=== PATIENT | female | born 1955 | race Caucasian/White ===

== ENCOUNTER → 2022-04-29 12:52 | Outpatient (CLI) | payer BC, SELFPAY ==
--- NOTE | ~2022-04-29 | MM_ITS ---
EXAMINATION: MM screening [facility]ian BI w magdalena HISTORY: Screening TECHNIQUE: Craniocaudal and mediolateral oblique 3-D tomosynthesis images were obtained and synthetic 2-D images were generated. CAD analysis was submitted and interpreted. COMPARISON: Comparison to multiple prior studies sequentially, with oldest reviewed study dated 09/2013. BREAST PARENCHYMAL COMPOSITION: There are scattered areas of fibroglandular density. FINDINGS: Stable asymmetric nodular densities. There is no evidence of suspicious mass, calcification , or architectural distortion to suggest malignancy in either breast. There has been no suspicious in terval change. IMPRESSION: 1. No mammographic evidence of malignancy. 2. Recommend routine screening mammography in one year. BI-RADS Category 1: Negative Reviewed, dictated and finalized at location A. LEX OPERATOR
== END ==
PROVIDERS: PCP Family Medicine; Visit Provider Family Medicine
DX: Z12.31 Encounter for screening mammogram for malignant neoplasm of breast (principal)
CPT/HCPCS: 77063; 77067

== ENCOUNTER 2022-08-04 10:13 | Emergency (ER) | payer MEDICARE, SELFPAY ==
--- NOTE | ~2022-08-04 | CT_ITS ---
EXAMINATION: CT brain wo con DATE: 08/04/2022 12:26 INDICATION: Headache. TECHNIQUE: Computed tomography (CT) of the head was performed without intravenous contrast. The dose- length product was 605.33 mGy-cm. Automated exposure control and iterative reconstruction technique w ere employed. COMPARISON: None FINDINGS: There are scattered mild periventricular and subcortical white matter changes, most likely related to small vessel ischemic disease (microangiopathy). There is intracranial atherosclerosis. No ventriculomegaly or midline shift. Basilar cisterns are patent. Paranasal sinuses and mastoids are p neumatized. No depressed skull fractures. No acute intracranial hemorrhage, infarction, mass or mass effect. IMPRESSION: 1. No acute intracranial abnormality. 2: Chronic age-related findings. Reviewed, dictated and finalized at location L. ON WASHER
[2022-08-04 10:17] VITALS: BP 131/70; PULSE 95; RESP 16; TEMP 37.2; O2SAT 97
--- NOTE | 2022-08-04 11:29 | ED.GENADULT ---
HPI - General Adult General Chief complaint: Upper Respiratory Infection Stated complaint: fever, headache Time Seen by Provider: 08/04/22 11:13 History of Present Illness HPI narrative: This is a 66-year-old female with no pertinent PMH who presents with a chief complaint of intermittent headache since yesterday. Additional complaints of fever, chills, cough, sore throat. She states that this headache is intermittent but severe at an 8 out of 10 when it comes on. Located in the occipital region and radiates forward. This is different than her headache patterns in the past so she is concerned. Denies any neurologic symptoms. Denies vision changes. Denies any head trauma or LOC. She is not on blood thinners. Took Tylenol at home with no relief. She has never had a CT scan of her head. Denies any known sick contacts. Denies, abdominal pain, chest pain, shortness of breath, nausea, vomiting. Denies ever having COVID-vaccine. She is a smoker. There is no neck pain or stiffness. Related Data Home Medications Medication Instructions Recorded Confirmed No Home Medications 08/04/22 08/04/22 Allergies Allergy/AdvReac Type Severity Reaction Status Date / Time Penicillins AdvReac Unknown Unknown Verified 08/04/22 11:28 Contrast Media Allergy Intermediate HIVES Uncoded 08/04/22 11:28 Review of Systems Review of Systems: CONSTITUTIONAL: Denies fever, chills, or sweats. EYES: Denies visual changes, redness, or discharge. ENT: Endorses sore throat. Denies rhinorrhea, congestion, otalgia. CARDIOVASCULAR: Denies chest pain, palpitations, or edema. RESPIRATORY: Endorses cough or dyspnea. GASTROINTESTINAL: Denies abdominal pain, nausea, vomiting, or diarrhea. GENITOURINARY: Denies dysuria or hematuria. SKIN: Denies rash or itching. MUSCULOSKELETAL: Denies back pain, joint pain, or myalgia. NEUROLOGIC: Endorses headache. denies numbness, dizziness, or weakness. PSYCHIATRIC: Denies anxiety or depression. [facility] Family History Family History (Updated 01/10/16 @ 23:19 by DOCTOR UNKNOWN) Sibling Family history of malignant neoplasm of breast in first degree relative Patient's sister is Social History Social History Smoking status: Former smoker Smoking end date: 06/14/13 Alcohol intake: current Exam Narrative: GENERAL: Well-appearing, well-nourished, and in no acute distress. HEAD: Normocephalic, atraumatic. EYES: PERRLA and EOMI. ENT: Nares clear, no rhinorrhea or epistaxis. Mucous membranes moist. Posterior oropharynx shows erythema. Oropharynx without tonsillar hypertrophy exudate or other lesions. Uvula midline. No trismus or drooling. NECK: Supple. No adenopathy or masses. CHEST: No respiratory distress. Clear to auscultation. No wheezes rales or rhonchi HEART: Regular rate and rhythm. No murmur heard. Normal peripheral pulses. ABDOMEN: Soft, nontender, nondistended, normal active bowel sounds. EXTREMITIES: Normal range of motion. No edema. SKIN: Warm, dry, no rash. NEURO: Alert and oriented x3. No focal deficits. PSYCH: Normal mood and affect. Course Vital Signs Vital signs: Vital Signs Temperature 99 F 08/04/22 10:17 Pulse Rate 95 08/04/22 10:17 Respiratory Rate 16 08/04/22 10:17 Blood Pressure 131/70 08/04/22 10:17 Pulse Oximetry 97 08/04/22 10:17 Temperature 99 F 08/04/22 10:17 Pulse Rate 95 08/04/22 10:17 Respiratory Rate 16 08/04/22 10:17 Blood Pressure 131/70 08/04/22 10:17 Pulse Oximetry 97 08/04/22 10:[address] [facility] Narrative Medical decision making narrative: This is a 66-year-old female presents with chief complaint of headache and viral URI symptoms. She reports headache is different than the ones she has had in the past. Neuro exam benign. Physical exam shows some erythema of the oropharynx. She has never had a CT scan so felt it was reasonable to get a CT scan of the brain. This shows no ac
[2022-08-04] MEDS: METOCLOPRAMIDE HCL 5 MG TABLET PO (12:48)
[2022-08-04] MEDS: IBUPROFEN 400 MG TABLET 800 MG PO (12:48)
[2022-08-04 13:14] LABS: Influenza A QL RT-PCR Negative (Negative); Influenza B QL RT-PCR Negative (Negative); RSV RNA, RT-PCR Negative (Negative); SARS-CoV-2 RNA PCR Positive
[2022-08-04 13:33] LABS: Basophils Percent Auto 0.4 % (0.2-1.2); Hematocrit 43.6 % (37.0-47.0); Hemoglobin 14.6 g/dL (12.0-15.0); Lymphocytes Percent Auto 31.3 % (18.3-44.2); Mean Corpuscular HGB Conc 33.5 g/dl (32-36); Mean Corpuscular Hemoglobin 32.5 pg (26-34); Mean Corpuscular Volume 97.1 fl (80-100); Monocytes Absolute Auto 0.6 K/mm3 (0.1-0.6); Monocytes Percent Auto 21.9 % (2.6-8.5); Neutrophils Absolute Auto 1.2 K/mm3 (1.3-6.7); Neutrophils Percent Auto 46.4 % (45.5-73.1); Platelet Count Result 123 k/mm3 (150-375); Red Blood Count 4.49 M/mm3 (4.2-5.4); Red Cell Distribution Width 13.2 % (11.5-14.5); White Blood Count 2.6 K/mm3 (4.5-10.0)
[2022-08-04 13:44] LABS: Potassium 3.3 mmol/L (3.4-5.0)
[2022-08-04 13:51] LABS: Alanine Aminotransferase 25 U/L (6-35); Albumin Level 4.4 g/dL (3.5-5.1); Alkaline Phosphatase 90 U/L (38-126); Anion Gap 8 mmol/L (8-16); Aspartate Amino Transferase 38 U/L (14-36); Bilirubin,Total 0.4 mg/dL (0.2-1.3); Blood Urea Nitrogen 19 mg/dL (7-17); Calcium 8.7 mg/dL (8.4-10.2); Carbon Dioxide 24 mmol/L (22-30); Chloride 102 mmol/L (98-107); Estimated CRCL calculation 55 ml/min; Estimated Glomerular Filt Rate > 60; Glucose 117 mg/dL (65-110); Sodium 134 mmol/L (137-145)
[2022-08-04 14:07] VITALS: BP 106/54; PULSE 64; RESP 18; TEMP 36.8; O2SAT 95
== END 2022-08-04 14:07 | disposition home or self-care (01) ==
PROVIDERS: Emergency Provider Physician Assistant; PCP Family Medicine
DX: U07.1 COVID-19 (principal); Z28.310 Unvaccinated for COVID-19; Z87.891 Personal history of nicotine dependence
CPT/HCPCS: 36415; 70450; 80053; 85025; 87637; 99284; A9270

== ENCOUNTER 2023-04-29 12:25 | Outpatient (CLI) | payer MEDICARE, SELFPAY ==
--- NOTE | ~2023-04-29 | MM_ITS ---
EXAMINATION: MM screening christian BI w magdalena HISTORY: Screening mammogram, family history of breast cancer in her sister. TECHNIQUE: Craniocaudal and mediolateral oblique 3-D tomosynthesis images were obtained and synthetic 2-D images were generated. CAD analysis was submitted and interpreted. COMPARISON: 04/29/2022, 05/11/2018, 04/29/2018 BREAST PARENCHYMAL COMPOSITION: There are scattered areas of fibroglandular density. FINDINGS: RIGHT BREAST: No suspicious mass, calcification, or architectural distortion are identified to sugges t malignancy. There has been no suspicious interval change. LEFT BREAST: There is a mass in the anterior/middle third of the inner breast approximately 5 cm from the nipple. IMPRESSION: 1. Left breast mass. 2. Additional mammographic views and possible breast ultrasound are recommended. BI-RADS Category 0: Incomplete: Needs additional imaging evaluation. Reviewed, dictated and finalized at location A. O AERIAL INSTALLER IMPRESSION: 1. Left breast mass. 2. Additional mammographic views and possible breast ultrasound are recommended . BI-RADS Category 0: Incomplete: Needs additional imaging evaluation.
== END 2023-04-29 12:26 | disposition home or self-care (01) ==
LOC: CHSIMG 12:29
PROVIDERS: PCP Family Medicine; Visit Provider Family Medicine
DX: Z12.31 Encounter for screening mammogram for malignant neoplasm of breast (principal); R92.8 Other abnormal and inconclusive findings on diagnostic imaging of breast
CPT/HCPCS: 77063; 77067

== ENCOUNTER → 2023-05-18 09:05 | Outpatient (CLI) | payer MEDICARE, SELFPAY ==
--- NOTE | ~2023-05-18 | MMUS_ITS ---
EXAMINATION: MM diagnostic christian LT w magdalena, US breast LT limited HISTORY: Left breast mass on screening mammogram TECHNIQUE: Additional 3-D tomosynthesis images of the left breast were performed and synthetic 2-D im ages were generated. CAD analysis was submitted and interpreted. High resolution limited left breast ultrasound was performed. COMPARISON: 04/29/2023, 04/29/2022, 04/29/2018, 04/29/2017 FINDINGS: MAMMOGRAPHIC FINDINGS: There is a persistent 5 mm oval, circumscribed, equal density mass in the anterior/middle third of th e upper inner quadrant of the breast at the 10:00 location, 3.5 cm from the nipple. No associated arc hitectural distortion or calcifications are identified. A chronic, stable mass is noted in the anteri or third of the upper inner quadrant of the breast at the 11:00 location, 3.5 cm from the nipple. ULTRASOUND: There is a 5 mm cyst at the 10:00 location, 5 cm from the nipple corresponding to the mammographic fi nding in question. There is a 10 mm circumscribed hypoechoic mass at the 11:00 location, 3 cm from th e nipple corresponding to the mammographically stable mass. IMPRESSION: 1. No mammographic or sonographic evidence of malignancy. 2. Recommend routine screening mammography in one year. BI-RADS Category 2: Benign finding(s). Reviewed, dictated and finalized at location A. CURER IMPRESSION: 1. No mammographic or sonographic evidence of malignancy. 2. Recommend routine screening mammography in one year. BI-RADS Category 2: Benign finding(s).
== END ==
PROVIDERS: PCP Family Medicine; Visit Provider Family Medicine
DX: R92.8 Other abnormal and inconclusive findings on diagnostic imaging of breast (principal)
CPT/HCPCS: 76642; 77061; 77065; G0279